=== PATIENT | female | born 1985 | race Caucasian/White ===

== ENCOUNTER 2017-04-05 09:32 | Inpatient (IN) | payer BC ==
[2017-04-05] MEDS ORDERED: ceFAZolin 2 GM in Premix Bag 1 BAG IV ONE (11:01)
[2017-04-05] MEDS ORDERED: Nalbuphine 20 MG/1 ML Amp IVPUSH PRN (11:01)
[2017-04-05] MEDS ORDERED: Sodium Chloride 0.9% 10 ML Syringe FLUSH PRN (11:01)
--- NOTE | 2017-04-05 11:04 | PCM.LDHP ---
L&D History of Present Illness - General Date of Service: 04/05/17 Admit Problem/Dx: Patient Status Order with Admit Dx/Problem 04/05/17 11:02 Patient Status [ADT] Routine Admission Diagnosis/Problem Admission Diagnosis/Problem Normal Source of Information: Patient History Limitations: Reports: No Limitations - History of Present Illness Introduction:: Patient is a 31 y/o at 37 6/7 wks who presents today from clinic for further monitoring. In clinic today and noted a headache which started yesterday and in general feeling unwell. Her blood pressure which is at the upper limit of normal. Otherwise denied vision changes or right upper quadrant pain. Because of these concerns she is asked to present for serial blood pressures and labs. 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 : 3 Para: 1 LMP (Approximate): Oncologic (Cancer) History: Reports: Thyroid Other Oncologic History: had partial thyroidectomy for papillary carcinoma - Past Surgical History Female Surgical History: Reports: Cystectomy Endocrine Surgical History: Reports: Thyroidectomy Oncologic Surgical History: Reports: Other (See Below) Social & Family History - Family History Family Medical History: Noncontributory - Tobacco Use Smoking Status *Q: Never Smoker Second Hand Smoke Exposure: No - Alcohol Use Alcohol Use History: No Days Per Week of Alcohol Use: 0 - Recreational Drug Use Recreational Drug Use: No H&P Review of Systems - Review of Systems: Review Of Systems: See Below General: Reports: Malaise HEENT: Reports: Headaches Pulmonary: Reports: No Symptoms Cardiovascular: Reports: No Symptoms Gastrointestinal: Reports: No Symptoms Genitourinary: Reports: No Symptoms Musculoskeletal: Reports: No Symptoms Psychiatric: Reports: No Symptoms Neurological: Reports: Headache L&D Exam - Exam Exam: See Below - Vital Signs Vital Signs: Last Vital Signs Temp 37.0 C 04/05/17 10:03 Pulse 79 04/05/17 10:03 Resp 18 04/05/17 10:03 BP 138/94 H 04/05/17 10:03 Pulse Ox Weight: 109.769 kg - OB Specific Contraction Intensity: Irritability Movement: Active Heart Tones: Present Heart Tones per Min: 125 Heart Rate (FHR) Variability: Moderate (6-25 bmp) Presentation: Vertex - Murguia Score Murguia Score Cervix Position: Midposition Murguia Score Consistency: Soft Murguia Score Effacement: 31-50% Murguia Score Dilation: 3-4 cm Murguia Score 's Station: -2 Murguia Score Total: 7 - Exam General: Alert, Oriented, Cooperative Lungs: Clear to Auscultation, Normal Respiratory Effort Cardiovascular: Regular Rate, Regular Rhythm GI/Abdominal Exam: Soft, Non-Tender Genitourinary: Normal external exam Extremities: Normal Inspection Skin: Warm, Dry, Intact DTR: 2+: Patella (R), 3+: Patella (L) - Patient Data Lab Results Last 24 hrs: Laboratory Results - last 24 hr 04/05/17 Range/Units 10:35 WBC 11.20 H (3.98-10.04) K/mm3 RBC 4.34 (3.98-5.22) M/mm3 Hgb 11.6 (11.2-15.7) gm/L Hct 36.4 (34.1-44.9) % MCV 83.9 (79.4-94.8) fl MCH 26.7 (25.6-32.2) pg MCHC 31.9 L (32.2-35.5) g/dl RDW Std Deviation 46.3 (36.4-46.3) fL Plt Count 135 L (182-369) K/mm3 MPV 13.5 H (9.4-12.3) fl Result Diagrams: 04/05/17 10:35 04/05/17 10:34 - Problem List (1) 37 weeks gestation of SNOMED Code(s): 39342938 ICD Code: Z3A.37 - 37 WEEKS GESTATION OF Status: Acute Current Visit: Yes (2) Preeclampsia SNOMED Code(s): 527923605 ICD Code: O14.90 - UNSPECIFIED PRE-ECLAMPSIA, UNSPECIFIED TRIMESTER Status : Acute Current Visit: Yes Qualifiers: Trimester: third trimester Qualified Code(s): O14.93 - Unspecified pre- eclampsia, third trimester Problem List Initiated/Reviewed/Updated: Yes Orders Last 24hrs: Active Orders 24 hr Category Date Time Status Patient Status [ADT] Routine ADT 04/05/17 11:02 Ordered Activity as Tolerated [RC] PFP Care 04/05/17 11:01 Ordered Communication Order [RC] ASDIRECTED Care 04/05/17 11:01 Ordered Communication Order [RC] ASDIRECTED Care 04/05/17 11:01 Ordered Heart Tones [RC] ASDIRECTED Care 04/05/17 11:01 Ordered Non Stress Test [RC] PER UNIT ROUTINE Care 04/05/17 10:07 Active Notify Provider [RC] ASDIRECTED Care 04/05/17 11:01 Ordered Notify Provider [RC] PFP Care 04/05/17 11:01 Ordered Notify Provider [RC] PRN Care 04/05/17 11:01 Ordered Peripheral IV Care [RC] . DIRECTED Care 04/05/17 11:03 Ordered Vital Signs [RC] PER UNIT ROUTINE Care 04/05/17 10:07 Active Vital Signs [RC] PER UNIT ROUTINE Care 04/05/17 11:01 Ordered Regular Diet [DIET] Diet 04/05/17 Breakfast Active ALANINE AMINOTRANSFERASE,ALT [CHEM] Routine Lab 04/05/17 10:06 Ordered ASPARTATE AMNIOTRANSFERASE,AST [CHEM] Routine Lab 04/05/17 10:06 Ordered CREATININE W/GFR [CHEM] Routine Lab 04/05/17 10:06 Ordered Lactated Ringers [Ringers, Lactated] 1,000 ml Med 04/05/17 11:15 Ordered IV ASDIRECTED Nalbuphine [Nubain] Med 04/05/17 11:01 Ordered 10 mg IVPUSH Q2H PRN Ondansetron [Zofran] Med 04/05/17 11:01 Ordered 4 mg IVPUSH Q4H PRN Oxytocin/Lactated Ringers [Pitocin in LR 10 Units/1,000 Med 04/05/17 11:15 Ordered ML] 10 unit in 1,000 ml IV .CONTINUOUS Oxytocin/Lactated Ringers [Pitocin in LR 10 Units/1,000 Med 04/05/17 11:15 Ordered ML] 10 unit in 1,000 ml IV TITRATE Sodium Chloride 0.9% [Saline Flush] Med 04/05/17 11:01 Ordered 10 ml FLUSH ASDIRECTED PRN ceFAZolin [Ancef] 1 gm Med 04/05/17 14:00 Ordered Premix Bag 1 bag IV Q8HR ceFAZolin [Ancef] 2 gm Med 04/05/17 11:01 Ordered Premix Bag 1 bag IV ONETIME Electronic Heart Tones Ext w TOCO [WOMSER] Oth 04/05/17 11:01 Ordered Routine Electronic Heart Tones Internal [WOMSER] Per Unit Ot 04/05/17 11:01 Ordered Routine Peripheral IV Insertion Adult [OM.PC] Routine Oth 04/05/17 11:01 Ordered Resuscitation Status Routine Resus Stat 04/05/17 10:06 Ordered Assessment/Plan Comment:: 31 y/o at 37 6/7 wks gestation * Labs done and within normal limits. Blood pressures done serially and most are in the mild range. We'll plan for keeping in for induction of labor. * Patient is GBS positive, will start Ancef for prophylaxis * Pitocin to be started for induction and then AROM when able * Pain management per patient preference * Anticipate
[2017-04-05] MEDS ORDERED: Oxytocin/Lactated Ringers 10 UNIT/1,000 ML BAG IV SCH ×2 (11:15)
[2017-04-05] MEDS ORDERED: Lactated Ringers 1,000 ML IV SCH (11:15)
[2017-04-05] MEDS: Ondansetron 4 MG/2 ML SDV IVPUSH PRN ×2 (14:06→20:05)
--- NOTE | 2017-04-05 14:52 | PCM.PREANE ---
Preanesthetic Assessment - Procedure Proposed Procedure: GENA - Anesthesia/Transfusion/Family Hx Anesthesia History: Prior Anesthesia Reaction Type of Anesthesia Reaction: Excessive Nausea/Vomiting Family History of Anesthesia Reaction: No Transfusion History: No Prior Transfusion(s) Intubation History: Unknown - Review of Systems General: No Symptoms Pulmonary: No Symptoms Cardiovascular: No Symptoms Gastrointestinal: Other (GERD) Neurological: No Symptoms Other: Reports: Thyroid Problems (hx thyroid ca, right thyroid lobectomy, hypothyroidism) - Physical Assessment NPO Status Date: 04/05/17 NPO Status Time: 14:00 Respiratory Rate: 18 Vital Signs: Last Vital Signs Temp 37.0 C 04/05/17 10:03 Pulse 79 04/05/17 10:03 Resp 18 04/05/17 10:03 BP 138/94 H 04/05/17 10:03 Pulse Ox Height: 1.73 m Weight: 109.769 kg ASA Class: 2 Mental Status: Alert & Oriented x3 Airway Class: Mallampati = 2 Dentition: Reports: Normal Dentition Thyro-Mental Finger Breadths: 3 Mouth Opening Finger Breadths: 3 ROM/Head Extension: Full Lungs: Clear to Auscultation, Normal Respiratory Effort Cardiovascular: Regular Rate, Regular Rhythm - Lab Values: Laboratory Last Values WBC 11.20 K/mm3 (3.98-10.04) H 04/05/17 10:35 RBC 4.34 M/mm3 (3.98-5.22) 04/05/17 10:35 Hgb 11.6 gm/L (11.2-15.7) 04/05/17 10:35 Hct 36.4 % (34.1-44.9) 04/05/17 10:35 MCV 83.9 fl (79.4-94.8) 04/05/17 10:35 MCH 26.7 pg (25.6-32.2) 04/05/17 10:35 MCHC 31.9 g/dl (32.2-35.5) L 04/05/17 10:35 RDW Std Deviation 46.3 fL (36.4-46.3) 04/05/17 10:35 Plt Count 135 K/mm3 (182-369) L 04/05/17 10:35 MPV 13.5 fl (9.4-12.3) H 04/05/17 10:35 Creatinine 0.7 mg/dL (0.55-1.02) 04/05/17 10:34 Est Cr Clr Drug Dosing 118.54 mL/min 04/05/17 10:34 Estimated GFR (MDRD) > 60 mL/min (>60) 04/05/17 10:34 AST 16 U/L (15-37) 04/05/17 10:34 ALT 18 U/L (14-59) 04/05/17 10:34 - Allergies Allergies/Adverse Reactions: Allergies Allergy/AdvReac Type Severity Reaction Status Date / Time erythrosine sodium Allergy Rash Verified 10/05/15 17:42 Penicillins Allergy Rash Verified 10/05/15 17:42 - Blood Blood Available: No Product(s) Available: None - Anesthesia Plan Pre-Op Medication Ordered: None - Acknowledgements Anesthesia Type Planned: Epidural Pt an Appropriate Candidate for the Planned Anesthesia: Yes Alternatives and Risks of Anesthesia Discussed w Pt/Guardian: Yes Pt/Guardian Understands and Agrees with Anesthesia Plan: Yes PreAnesthesia Questionnaire - Past Health History Medical/Surgical History: Denies Medical/Surgical History [employer]IDE [employer] History: Reports: , Spontaneous Other OB/BYN History: ovairan cyst removal Endocrine/Metabolic History: Reports: Other (See Below) Oncologic (Cancer) History: Reports: Thyroid Other Oncologic History: had partial thyroidectomy for papillary carcinoma - Past Surgical History Female Surgical History: Reports: Cystectomy Endocrine Surgical History: Reports: Thyroidectomy Oncologic Surgical History: Reports: Other (See Below) - SUBSTANCE USE Smoking Status *Q: Never Smoker Second Hand Smoke Exposure: No Days Per Week of Alcohol Use: 0 Recreational Drug Use History: No - HOME MEDS Home Medications: Home Meds Levothyroxine Sodium [Synthroid] 125 mcg PO DAILY 10/05/15 [History] PNV #116/Iron Fumarate/FA/DHA [Expecta Combo Pack] 1 each PO DAILY 03/11 [History] - CURRENT (IN HOUSE) MEDS Current Meds: Current Medications Cefazolin Sodium/Dextrose 1 gm (/ Premix) 50 mls @ 100 mls/hr IV Q8H JOE Lactated Ringer's (Ringers, Lactated) 1,000 mls @ 40 mls/hr IV ASDIRECTED JOE Last Admin: 04/05/17 13:40 Dose: 40 mls/hr Oxytocin/Lactated Ringer's (Pitocin In Lr 10 Units/1,000 Ml) 10 unit in 1,000 mls @ 500 mls/hr IV .CONTINUOUS JOE Oxytocin/Lactated Ringer's (Pitocin In Lr 10 Units/1,000 Ml) 10 unit in 1,000 mls @ 12 mls/hr IV TITRATE JOE; 2 MUNITS/MIN PRN Reason: Protocol Last Titration: 04/05/17 14:12 Dose: 4 munits/min, 24 mls/hr Nalbuphine HCl (Nubain) 10 mg IVPUSH Q2H PRN PRN Reason: Pain (moderate 4-6) Ondansetron HCl (Zofran) 4 mg IVPUSH Q4H PRN PRN Reason: Nausea/Vomiting Last Admin: 04/05/17 14:06 Dose: 4 mg Sodium Chloride (Saline Flush) 10 ml FLUSH ASDIRECTED PRN PRN Reason: Keep Vein Open Last Admin: 04/05/17 13:48 Dose: 10 ml Discontinued Medications Cefazolin Sodium/Dextrose 2 gm (/ Premix) 50 mls @ 100 mls/hr IV ONETIME ONE Stop: 04/05/17 11:30 Last Admin: 04/05/17 13:45 Dose: 100 mls/hr
--- NOTE | 2017-04-05 16:39 | PCM.PNLD ---
Labor Progress Note - VS & Meds Vital Signs: Last Vital Signs Temp 37.0 C 04/05/17 10:03 Pulse 79 04/05/17 10:03 Resp 18 04/05/17 14:52 BP 138/94 H 04/05/17 10:03 Pulse Ox Active Medications: Current Medications Cefazolin Sodium/Dextrose 1 gm (/ Premix) 50 mls @ 100 mls/hr IV Q8H JOE Lactated Ringer's (Ringers, Lactated) 1,000 mls @ 40 mls/hr IV ASDIRECTED JOE Last Admin: 04/05/17 13:40 Dose: 40 mls/hr Oxytocin/Lactated Ringer's (Pitocin In Lr 10 Units/1,000 Ml) 10 unit in 1,000 mls @ 500 mls/hr IV .CONTINUOUS JOE Oxytocin/Lactated Ringer's (Pitocin In Lr 10 Units/1,000 Ml) 10 unit in 1,000 mls @ 12 mls/hr IV TITRATE JOE; 2 MUNITS/MIN PRN Reason: Protocol Last Titration: 04/05/17 16:28 Dose: 10 munits/min, 60 mls/hr Nalbuphine HCl (Nubain) 10 mg IVPUSH Q2H PRN PRN Reason: Pain (moderate 4-6) Ondansetron HCl (Zofran) 4 mg IVPUSH Q4H PRN PRN Reason: Nausea/Vomiting Last Admin: 04/05/17 14:06 Dose: 4 mg Sodium Chloride (Saline Flush) 10 ml FLUSH ASDIRECTED PRN PRN Reason: Keep Vein Open Last Admin: 04/05/17 13:48 Dose: 10 ml Discontinued Medications Cefazolin Sodium/Dextrose 2 gm (/ Premix) 50 mls @ 100 mls/hr IV ONETIME ONE Stop: 04/05/17 11:30 Last Admin: 04/05/17 13:45 Dose: 100 mls/hr - Uterine Contractions Uterine Monitoring Mode: External [place] Contraction Intensity: Mild to Moderate - Monitoring Monitor Mode: External Ultrasound Heart Rate (FHR) Baseline: 135 Heart Rate (FHR) Variability: Moderate (6-25 bmp) Accelerations: Present, 15x15 Decelerations: None Strip Review: Category I - Vaginal Exam Dilation (cm): 3-4 Effacement (Percent): 50 Station: -2 Cervical Position: Midposition - Labor Progress (Free Text) Labor Progress: Patient doing well on pitocin, currently at 10. Feeling some cramping/pain. AROM performed with release of clear fluid. BP's normal to mild range. Patient feeling well currently. Continue present management
[2017-04-05] MEDS ORDERED: ePHEDrine 50 MG/ML SDV IVPUSH PRN (18:39)
[2017-04-05] MEDS ORDERED: fentaNYL 100 MCG/2 ML SDV EPIDUR PRN (18:39)
[2017-04-05] MEDS ORDERED: Ondansetron 4 MG/2 ML SDV IVPUSH PRN (18:39)
[2017-04-05] MEDS ORDERED: diphenhydrAMINE 50 MG/ML SDV IVPUSH PRN (18:39)
[2017-04-05] MEDS ORDERED: Bupivacaine/fentaNYL/NS 100 ML Bag EPIDUR SCH (18:45)
--- NOTE | 2017-04-05 19:59 | PCM.PNLD ---
Labor Progress Note - VS & Meds Vital Signs: Last Vital Signs Temp 37.0 C 04/05/17 10:03 Pulse 79 04/05/17 10:03 Resp 18 04/05/17 14:52 BP 138/94 H 04/05/17 10:03 Pulse Ox Active Medications: Current Medications Diphenhydramine HCl (Benadryl) 25 mg IVPUSH Q6H PRN PRN Reason: Pruritis Ephedrine Sulfate (Ephedrine Sulfate) 5 mg IVPUSH ASDIRECTED PRN PRN Reason: Hypotension Fentanyl (Sublimaze) 100 mcg EPIDUR Q3H PRN PRN Reason: Pain Last Admin: 04/05/17 19:02 Dose: 100 mcg Fentanyl/Bupivacaine HCl (Fentanyl/Bupivacaine/Ns 2 Mcg-0.125% 100 Ml) 100 ml EPIDUR ASDIRECTED JOE Last Admin: 04/05/17 19:02 Dose: 100 ml Cefazolin Sodium/Dextrose 1 gm (/ Premix) 50 mls @ 100 mls/hr IV Q8H JOE Lactated Ringer's (Ringers, Lactated) 1,000 mls @ 40 mls/hr IV ASDIRECTED JOE Last Admin: 04/05/17 13:40 Dose: 40 mls/hr Oxytocin/Lactated Ringer's (Pitocin In Lr 10 Units/1,000 Ml) 10 unit in 1,000 mls @ 500 mls/hr IV .CONTINUOUS JOE Oxytocin/Lactated Ringer's (Pitocin In Lr 10 Units/1,000 Ml) 10 unit in 1,000 mls @ 12 mls/hr IV TITRATE JOE; 2 MUNITS/MIN PRN Reason: Protocol Last Titration: 04/05/17 16:28 Dose: 10 munits/min, 60 mls/hr Nalbuphine HCl (Nubain) 10 mg IVPUSH Q2H PRN PRN Reason: Pain (moderate 4-6) Ondansetron HCl (Zofran) 4 mg IVPUSH Q4H PRN PRN Reason: Nausea/Vomiting Last Admin: 04/05/17 14:06 Dose: 4 mg Ondansetron HCl (Zofran) 4 mg IVPUSH ONETIME PRN PRN Reason: Nausea/Vomiting Sodium Chloride (Saline Flush) 10 ml FLUSH ASDIRECTED PRN PRN Reason: Keep Vein Open Last Admin: 04/05/17 13:48 Dose: 10 ml Discontinued Medications Cefazolin Sodium/Dextrose 2 gm (/ Premix) 50 mls @ 100 mls/hr IV ONETIME ONE Stop: 04/05/17 11:30 Last Admin: 04/05/17 13:45 Dose: 100 mls/hr - Uterine Contractions Uterine Monitoring Mode: External [place] Contraction Intensity: Moderate - Monitoring Monitor Mode: External Ultrasound Heart Rate (FHR) Baseline: 135 Heart Rate (FHR) Variability: Moderate (6-25 bmp) Accelerations: Present, 15x15 Decelerations: Variable Strip Review: Category II - Vaginal Exam Dilation (cm): 5 Effacement (Percent): 75 Station: -2 Cervical Position: Midposition - Labor Progress (Free Text) Labor Progress: Patient doing well. Comfortable with epidural. Continue present management.
[2017-04-05] MEDS ORDERED: ceFAZolin 1 GM in Premix Bag 1 BAG IV SCH (20:00)
--- NOTE | 2017-04-05 21:30 | PCM.DEL ---
L & D Note - General Info Date of Service: 04/05/17 - Delivery Note Labor: Induced by ARM, Induced by Oxytocin Delivery Outcome: Livebirth Infant Delivery Method: Spontaneous Vaginal Delivery-Single Infant Delivery Mode: Spontaneous Presentation: Left Occiput Anterior (CRISTIN) Nuchal Cord: None Anesthesia Type: Epidural Amniotic Fluid Description: Clear Episiotomy Type: None Laceration: None Placenta: Intact, Spontaneous Cord: 3 Vessels Estimated Blood Loss: 250 Resuscitation Needed: Yes [place]: Bulb Syringe, Stimulated, Warmed, [place] Used Delivery Comments (Free Text/Narrative):: While sitting on L&D approached by nursing due to difficulty assessing FHR. Presented to room and prepared for FSE placement, however, exam showed scalp already at introirtus/. head spontaneously delivered from an CRISTIN presentation. No nuchal cord present. With gentle downward traction the shoulders and body delivered. placed on maternal abdomen. Cord clamped and cut. Cord blood obtained. Placenta allowed time to separate and expelled. Inspection of the perineum showed no lacerations - Patient Data Vitals - Most Recent: Last Vital Signs Temp 37.0 C 04/05/17 10:03 Pulse 79 04/05/17 10:03 Resp 18 04/05/17 14:52 BP 138/94 H 04/05/17 10:03 Pulse Ox Weight - Most Recent: 109.769 kg I&O - Last 24 Hours: Intake & Output 04/05/17 04/05/17 04/05/17 06:59 14:59 22:59 Intake Total 360 Balance 360 Lab Results Last 24 Hours: Laboratory Results - last 24 hr 04/05/17 04/05/17 Range/Units 10:34 10:35 WBC 11.20 H (3.98-10.04) K/mm3 RBC 4.34 (3.98-5.22) M/mm3 Hgb 11.6 (11.2-15.7) gm/L Hct 36.4 (34.1-44.9) % MCV 83.9 (79.4-94.8) fl MCH 26.7 (25.6-32.2) pg MCHC 31.9 L (32.2-35.5) g/dl RDW Std Deviation 46.3 (36.4-46.3) fL Plt Count 135 L (182-369) K/mm3 MPV 13.5 H (9.4-12.3) fl Creatinine 0.7 (0.55-1.02) mg/dL Est Cr Clr Drug Dosing 118.54 mL/min Estimated GFR (MDRD) > 60 (>60) mL/min AST 16 (15-37) U/L ALT 18 (14-59) U/L Med Orders - Current: Current Medications Diphenhydramine HCl (Benadryl) 25 mg IVPUSH Q6H PRN PRN Reason: Pruritis Ephedrine Sulfate (Ephedrine Sulfate) 5 mg IVPUSH ASDIRECTED PRN PRN Reason: Hypotension Fentanyl (Sublimaze) 100 mcg EPIDUR Q3H PRN PRN Reason: Pain Last Admin: 04/05/17 19:02 Dose: 100 mcg Fentanyl/Bupivacaine HCl (Fentanyl/Bupivacaine/Ns 2 Mcg-0.125% 100 Ml) 100 ml EPIDUR ASDIRECTED JOE Last Admin: 04/05/17 19:02 Dose: 100 ml Cefazolin Sodium/Dextrose 1 gm (/ Premix) 50 mls @ 100 mls/hr IV Q8H JOE Last Admin: 04/05/17 20:05 Dose: 100 mls/hr Lactated Ringer's (Ringers, Lactated) 1,000 mls @ 40 mls/hr IV ASDIRECTED JOE Last Admin: 04/05/17 13:40 Dose: 40 mls/hr Oxytocin/Lactated Ringer's (Pitocin In Lr 10 Units/1,000 Ml) 10 unit in 1,000 mls @ 500 mls/hr IV .CONTINUOUS JOE Oxytocin/Lactated Ringer's (Pitocin In Lr 10 Units/1,000 Ml) 10 unit in 1,000 mls @ 12 mls/hr IV TITRATE JOE; 2 MUNITS/MIN PRN Reason: Protocol Last Titration: 04/05/17 20:06 Dose: 12 munits/min, 72 mls/hr Nalbuphine HCl (Nubain) 10 mg IVPUSH Q2H PRN PRN Reason: Pain (moderate 4-6) Ondansetron HCl (Zofran) 4 mg IVPUSH Q4H PRN PRN Reason: Nausea/Vomiting Last Admin: 04/05/17 20:05 Dose: 4 mg Ondansetron HCl (Zofran) 4 mg IVPUSH ONETIME PRN PRN Reason: Nausea/Vomiting Sodium Chloride (Saline Flush) 10 ml FLUSH ASDIRECTED PRN PRN Reason: Keep Vein Open Last Admin: 04/05/17 13:48 Dose: 10 ml Discontinued Medications Cefazolin Sodium/Dextrose 2 gm (/ Premix) 50 mls @ 100 mls/hr IV ONETIME ONE Stop: 04/05/17 11:30 Last Admin: 04/05/17 13:45 Dose: 100 mls/hr - Problem List & Annotations (1) 37 weeks gestation of SNOMED Code(s): 98484050 Code(s): Z3A.37 - 37 WEEKS GESTATION OF Status: Acute Current Visit: Yes (2) Preeclampsia SNOMED Code(s): 313547693 Code(s): O14.90 - UNSPECIFIED PRE-ECLAMPSIA, UNSPECIFIED TRIMESTER Status: Acute Current Visit: Yes Qualifiers: Trimester: third trimester Qualified Code(s): O14.93 - Unspecified pre- eclampsia, third trimester (3) Vaginal delivery SNOMED Code(s): 136845839 Code(s): O80 - ENCOUNTER FOR FULL-TERM UNCOMPLICATED DELIVERY Status: Acute Current Visit: Yes - Problem List Review Problem List Initiated/Reviewed/Updated: Yes - My Orders Last 24 Hours: My Active Orders 04/05/17 10:06 Resuscitation Status Routine 04/05/17 10:07 Non Stress Test [RC] PER UNIT ROUTINE Vital Signs [RC] PER UNIT ROUTINE 04/05/17 11:01 Activity as Tolerated [RC] PFP Communication Order [RC] ASDIRECTED Communication Order [RC] ASDIRECTED Heart Tones [RC] ASDIRECTED Notify Provider [RC] ASDIRECTED Notify Provider [RC] PFP Notify Provider [RC] PRN Vital Signs [RC] PER UNIT ROUTINE Nalbuphine [Nubain] 10 mg IVPUSH Q2H PRN Ondansetron [Zofran] 4 mg IVPUSH Q4H PRN Sodium Chloride 0.9% [Saline Flush] 10 ml FLUSH ASDIRECTED PRN Electronic Heart Tones Ext w TOCO [WOMSER] Routine Electronic Heart Tones Internal [WOMSER] Per Unit Routine Peripheral IV Insertion Adult [OM.PC] Routine 04/05/17 11:02 Patient Status [ADT] Routine 04/05/17 11:03 Peripheral IV Care [RC] . DIRECTED 04/05/17 11:15 Lactated Ringers [Ringers, Lactated] 1,000 ml IV ASDIRECTED Oxytocin/Lactated Ringers [Pitocin in LR 10 Units/1,000 ML] 10 unit in 1,000 ml IV .CONTINUOUS Oxytocin/Lactated Ringers [Pitocin in LR 10 Units/1,000 ML] 10 unit in 1,000 ml IV TITRATE 04/05/17 20:00 ceFAZolin [Ancef] 1 gm Premix Bag 1 bag IV Q8H 04/05/17 Breakfast Regular Diet [DIET] - Assessment Assessment:: 31 y/o G3 now P2012 PPD#0 from after IOL at 37 6/7 wks for preeclampsia - Plan Plan:: * Routine cares * Encourage breast feeding * Continue to monitor BP's closely * Discharge home in 1-2 days
[2017-04-05] MEDS ORDERED: Witch Hazel Medicated Pads 100/Jar TOP PRN (21:53)
[2017-04-05] MEDS ORDERED: Benzocaine/Menthol 20%-0.5% Spray 56 GM Canister TOP PRN (21:53)
[2017-04-05] MEDS ORDERED: Lanolin 100% Cream 7 GM Tube TOP PRN (21:53)
[2017-04-05] MEDS ORDERED: Acetaminophen 325 MG Tab PO PRN (21:53)
[2017-04-05] MEDS ORDERED: Docusate Sodium 100 MG Cap PO PRN (21:53)
[2017-04-05] MEDS ORDERED: Bupivacaine 0.25% 10 ML SDV ONE (22:22)
[2017-04-06] MEDS ORDERED: Levothyroxine 125 MCG Tab PO SCH (06:00)
[2017-04-06] MEDS: Ibuprofen 600 MG Tab PO PRN ×2 (06:19→17:54)
--- NOTE | 2017-04-06 07:03 | PCM.PNPP ---
- General Info Date of Service: 04/06/17 Functional Status: Reports: Pain Controlled, Tolerating Diet, Ambulating, Urinating - Review of Systems General: Reports: No Symptoms Pulmonary: Reports: No Symptoms Cardiovascular: Reports: No Symptoms Gastrointestinal: Reports: No Symptoms Genitourinary: Reports: No Symptoms Musculoskeletal: Reports: No Symptoms - Patient Data Vital Signs - Most Recent: Last Vital Signs Temp 37.0 C 04/05/17 10:03 Pulse 69 04/06/17 03:47 Resp 16 04/06/17 03:47 BP 127/98 H 04/06/17 03:47 Pulse Ox 98 04/06/17 03:47 Weight - Most Recent: 109.769 kg I&O - Last 24 Hours: Intake & Output 04/05/17 04/06/17 04/06/17 22:59 06:59 14:59 Intake Total 360 Balance 360 Lab Results - Last 24 Hours: Laboratory Results - last 24 hr 04/05/17 04/05/17 Range/Units 10:34 10:35 WBC 11.20 H (3.98-10.04) K/mm3 RBC 4.34 (3.98-5.22) M/mm3 Hgb 11.6 (11.2-15.7) gm/L Hct 36.4 (34.1-44.9) % MCV 83.9 (79.4-94.8) fl MCH 26.7 (25.6-32.2) pg MCHC 31.9 L (32.2-35.5) g/dl RDW Std Deviation 46.3 (36.4-46.3) fL Plt Count 135 L (182-369) K/mm3 MPV 13.5 H (9.4-12.3) fl Creatinine 0.7 (0.55-1.02) mg/dL Est Cr Clr Drug Dosing 118.54 mL/min Estimated GFR (MDRD) > 60 (>60) mL/min AST 16 (15-37) U/L ALT 18 (14-59) U/L Med Orders - Current: Current Medications Acetaminophen (Tylenol) 650 mg PO Q4H PRN PRN Reason: mild pain or fever Benzocaine/Menthol (Dermoplast Pain Relief [place]) 0 gm TOP ASDIRECTED PRN PRN Reason: Perineal Comfort Measure Docusate Sodium (Colace) 100 mg PO BID PRN PRN Reason: Constipation Emollient Ointment (Lansinoh Hpa) 0 gm TOP ASDIRECTED PRN PRN Reason: Sore Nipples Ibuprofen (Motrin) 600 mg PO Q6H PRN PRN Reason: Mild pain or fever Last Admin: 04/06/17 06:19 Dose: 600 mg Levothyroxine Sodium (Levothyroxine) 125 mcg PO ACBREAKFAST JOE Mikal Salmeron (Tucks) 1 pad TOP ASDIRECTED PRN PRN Reason: Hemorrhoid pain Discontinued Medications Diphenhydramine HCl (Benadryl) 25 mg IVPUSH Q6H PRN PRN Reason: Pruritis Ephedrine Sulfate (Ephedrine Sulfate) 5 mg IVPUSH ASDIRECTED PRN PRN Reason: Hypotension Fentanyl (Sublimaze) 100 mcg EPIDUR Q3H PRN PRN Reason: Pain Last Admin: 04/05/17 19:02 Dose: 100 mcg Fentanyl/Bupivacaine HCl (Fentanyl/Bupivacaine/Ns 2 Mcg-0.125% 100 Ml) 100 ml EPIDUR ASDIRECTED JOE Last Admin: 04/05/17 19:02 Dose: 100 ml Cefazolin Sodium/Dextrose 2 gm (/ Premix) 50 mls @ 100 mls/hr IV ONETIME ONE Stop: 04/05/17 11:30 Last Admin: 04/05/17 13:45 Dose: 100 mls/hr Cefazolin Sodium/Dextrose 1 gm (/ Premix) 50 mls @ 100 mls/hr IV Q8H JOE Last Admin: 04/05/17 20:05 Dose: 100 mls/hr Lactated Ringer's (Ringers, Lactated) 1,000 mls @ 40 mls/hr IV ASDIRECTED JOE Last Admin: 04/05/17 13:40 Dose: 40 mls/hr Oxytocin/Lactated Ringer's (Pitocin In Lr 10 Units/1,000 Ml) 10 unit in 1,000 mls @ 500 mls/hr IV .CONTINUOUS JOE Last Admin: 04/05/17 21:16 Dose: 500 mls/hr Oxytocin/Lactated Ringer's (Pitocin In Lr 10 Units/1,000 Ml) 10 unit in 1,000 mls @ 12 mls/hr IV TITRATE JOE; 2 MUNITS/MIN PRN Reason: Protocol Last Titration: 04/05/17 20:06 Dose: 12 munits/min, 72 mls/hr Levothyroxine Sodium (Levothyroxine) 125 mcg PO ACBREAKFAST JOE Nalbuphine HCl (Nubain) 10 mg IVPUSH Q2H PRN PRN Reason: Pain (moderate 4-6) Ondansetron HCl (Zofran) 4 mg IVPUSH Q4H PRN PRN Reason: Nausea/Vomiting Last Admin: 04/05/17 20:05 Dose: 4 mg Ondansetron HCl (Zofran) 4 mg IVPUSH ONETIME PRN PRN Reason: Nausea/Vomiting Sodium Chloride (Saline Flush) 10 ml FLUSH ASDIRECTED PRN PRN Reason: Keep Vein Open Last Admin: 04/05/17 13:48 Dose: 10 ml - Interaction Infant Disposition, : in Room with Family Infant Interaction: Holding Infant Feeding: Breastfed Infant; Nursed Well Support Person: - Recovery Exam Fundal Tone: Firm Fundal Level: At Umbilicus Fundal Placement: Midline Lochia Amount: Small, Moderate Lochia Color: Rubra/Red Perineum Description: Intact, Minimal Bruising/Swelling Episiotomy/Laceration: None Bladder Status: Voiding - Exam General: Alert, Oriented, Cooperative GI/Abdominal Exam: Soft, Non-Tender Extremities: Normal Inspection Skin: Warm, Dry, Intact - Problem List & Annotations (1) 37 weeks gestation of SNOMED Code(s): 37570387 Code(s): Z3A.37 - 37 WEEKS GESTATION OF Status: Acute Current Visit: Yes (2) Preeclampsia SNOMED Code(s): 433582353 Code(s): O14.90 - UNSPECIFIED PRE-ECLAMPSIA, UNSPECIFIED TRIMESTER Status: Acute Current Visit: Yes Qualifiers: Trimester: third trimester Qualified Code(s): O14.93 - Unspecified pre- eclampsia, third trimester (3) Vaginal delivery SNOMED Code(s): 053603351 Code(s): O80 - ENCOUNTER FOR FULL-TERM UNCOMPLICATED DELIVERY Status: Acute Current Visit: Yes - Problem List Review Problem List Initiated/Reviewed/Updated: Yes - My Orders Last 24 Hours: My Active Orders 04/05/17 10:06 Resuscitation Status Routine 04/05/17 10:07 Non Stress Test [RC] PER UNIT ROUTINE Vital Signs [RC] PER UNIT ROUTINE 04/05/17 11:01 Activity as Tolerated [RC] PFP Communication Order [RC] ASDIRECTED Communication Order [RC] ASDIRECTED Heart Tones [RC] ASDIRECTED Notify Provider [RC] ASDIRECTED Notify Provider [RC] PFP Notify Provider [RC] PRN Vital Signs [RC] PER UNIT ROUTINE 04/05/17 21:53 Activity as Tolerated [RC] .PRN Acetaminophen [Tylenol] 650 mg PO Q4H PRN Benzocaine/Menthol [Dermoplast Pain Relief [place]] See Dose Instructions TOP ASDIRECTED PRN Docusate Sodium [Colace] 100 mg PO BID PRN Ibuprofen [Motrin] 600 mg PO Q6H PRN Lanolin [Lansinoh HPA] See Dose Instructions TOP ASDIRECTED PRN Witch Faviola [Tucks] 1 pad TOP ASDIRECTED PRN Heat Therapy [OM.PC] PRN Ice Therapy [OM.PC] Per Unit Routine Perineal Care [OM.PC] Per Unit Routine Peripheral IV Discontinue [OM.PC] Routine Sitz Bath [OM.PC] Per Unit Routine 04/05/17 22:13 Patient Status [ADT] Routine Vital Signs [RC] 04,12,20 Assess Lochia [WOMSER] Per Unit Routine Assess Uterine Involution [WOMSER] Per Unit Routine Breast Pump [WOMSER] Per Unit Routine Medication Administration Instruction [OM.PC] Routine Perineal Care [OM.PC] Per Unit Routine Sitz Bath [OM.PC] Per Unit Routine 04/05/17 22:15 Heat Therapy [OM.PC] PRN 04/05/17 Dinner Regular Diet [DIET] 04/06/17 21:53 Heat Therapy [OM.PC] PRN 04/06/17 22:15 Heat Therapy [OM.PC] PRN 04/07/17 06:00 Levothyroxine 125 mcg PO ACBREAKFAST - Assessment Assessment:: 31 y/o G3 now P2012 PPD#1 from after IOL at 37 6/7 wks for preeclampsia - Plan Plan:: * Routine cares * Encourage breast feeding * BP's continue to be normal to low mild range. Continue to monitor closely. BP check in office in 1-2 weeks after discharge. * Discharge home tomorrow
[2017-04-07] MEDS ORDERED: Levothyroxine 125 MCG Tab PO SCH (06:00)
--- NOTE | 2017-04-07 07:04 | PCM.PNPP ---
- General Info Date of Service: 04/07/17 Functional Status: Reports: Pain Controlled, Tolerating Diet, Ambulating, Urinating - Review of Systems General: Reports: No Symptoms Pulmonary: Reports: No Symptoms Cardiovascular: Reports: No Symptoms Gastrointestinal: Reports: No Symptoms Genitourinary: Reports: No Symptoms Musculoskeletal: Reports: No Symptoms Neurological: Reports: No Symptoms - Patient Data Vital Signs - Most Recent: Last Vital Signs Temp 36.9 C 04/07/17 03:13 Pulse 70 04/07/17 03:13 Resp 12 04/07/17 03:13 BP 128/77 04/07/17 03:13 Pulse Ox 99 04/07/17 03:13 Weight - Most Recent: 109.769 kg I&O - Last 24 Hours: Intake & Output 04/06/17 04/07/17 04/07/17 22:59 06:59 14:59 Intake Total 240 Balance 240 Med Orders - Current: Current Medications Acetaminophen (Tylenol) 650 mg PO Q4H PRN PRN Reason: mild pain or fever Benzocaine/Menthol (Dermoplast Pain Relief [place]) 0 gm TOP ASDIRECTED PRN PRN Reason: Perineal Comfort Measure Docusate Sodium (Colace) 100 mg PO BID PRN PRN Reason: Constipation Emollient Ointment (Lansinoh Hpa) 0 gm TOP ASDIRECTED PRN PRN Reason: Sore Nipples Ibuprofen (Motrin) 600 mg PO Q6H PRN PRN Reason: Mild pain or fever Last Admin: 04/06/17 17:54 Dose: 600 mg Levothyroxine Sodium (Levothyroxine) 125 mcg PO ACBREAKFAST JOE Last Admin: 04/07/17 06:18 Dose: 125 mcg Witch Faviola (Tucks) 1 pad TOP ASDIRECTED PRN PRN Reason: Hemorrhoid pain Discontinued Medications Bupivacaine HCl (Sensorcaine-Mpf 0.25%) 10 ml .ROUTE .STK-MED ONE Stop: 04/05/17 22:23 Diphenhydramine HCl (Benadryl) 25 mg IVPUSH Q6H PRN PRN Reason: Pruritis Ephedrine Sulfate (Ephedrine Sulfate) 5 mg IVPUSH ASDIRECTED PRN PRN Reason: Hypotension Fentanyl (Sublimaze) 100 mcg EPIDUR Q3H PRN PRN Reason: Pain Last Admin: 04/05/17 19:02 Dose: 100 mcg Fentanyl/Bupivacaine HCl (Fentanyl/Bupivacaine/Ns 2 Mcg-0.125% 100 Ml) 100 ml EPIDUR ASDIRECTED JOE Last Admin: 04/05/17 19:02 Dose: 100 ml Cefazolin Sodium/Dextrose 2 gm (/ Premix) 50 mls @ 100 mls/hr IV ONETIME ONE Stop: 04/05/17 11:30 Last Admin: 04/05/17 13:45 Dose: 100 mls/hr Cefazolin Sodium/Dextrose 1 gm (/ Premix) 50 mls @ 100 mls/hr IV Q8H JOE Last Admin: 04/05/17 20:05 Dose: 100 mls/hr Lactated Ringer's (Ringers, Lactated) 1,000 mls @ 40 mls/hr IV ASDIRECTED JOE Last Admin: 04/05/17 13:40 Dose: 40 mls/hr Oxytocin/Lactated Ringer's (Pitocin In Lr 10 Units/1,000 Ml) 10 unit in 1,000 mls @ 500 mls/hr IV .CONTINUOUS JOE Last Admin: 04/05/17 21:16 Dose: 500 mls/hr Oxytocin/Lactated Ringer's (Pitocin In Lr 10 Units/1,000 Ml) 10 unit in 1,000 mls @ 12 mls/hr IV TITRATE JOE; 2 MUNITS/MIN PRN Reason: Protocol Last Titration: 04/05/17 20:06 Dose: 12 munits/min, 72 mls/hr Levothyroxine Sodium (Levothyroxine) 125 mcg PO ACBREAKFAST JOE Nalbuphine HCl (Nubain) 10 mg IVPUSH Q2H PRN PRN Reason: Pain (moderate 4-6) Ondansetron HCl (Zofran) 4 mg IVPUSH Q4H PRN PRN Reason: Nausea/Vomiting Last Admin: 04/05/17 20:05 Dose: 4 mg Ondansetron HCl (Zofran) 4 mg IVPUSH ONETIME PRN PRN Reason: Nausea/Vomiting Sodium Chloride (Saline Flush) 10 ml FLUSH ASDIRECTED PRN PRN Reason: Keep Vein Open Last Admin: 04/05/17 13:48 Dose: 10 ml - Infant Interaction Infant Disposition, : [place] in Room with Family Interaction: Holding Infant Feeding: Breastfed ; Nursed Well Support Person: - Recovery Exam Fundal Tone: Firm Fundal Level: 1 Fingerbreadths Below Umbilicus Fundal Placement: Midline Lochia Amount: Small Lochia Color: Rubra/Red Perineum Description: Intact, Minimal Bruising/Swelling Episiotomy/Laceration: None Bladder Status: Voiding - Exam General: Alert, Oriented, Cooperative GI/Abdominal Exam: Soft, Non-Tender Extremities: Normal Inspection Skin: Warm, Dry, Intact - Problem List & Annotations (1) 37 weeks gestation of SNOMED Code(s): 88304826 Code(s): Z3A.37 - 37 WEEKS GESTATION OF Status: Acute Current Visit: Yes (2) Preeclampsia SNOMED Code(s): 878102234 Code(s): O14.90 - UNSPECIFIED PRE-ECLAMPSIA, UNSPECIFIED TRIMESTER Status: Acute Current Visit: Yes Qualifiers: Trimester: third trimester Qualified Code(s): O14.93 - Unspecified pre- eclampsia, third trimester (3) Vaginal delivery SNOMED Code(s): 096795887 Code(s): O80 - ENCOUNTER FOR FULL-TERM UNCOMPLICATED DELIVERY Status: Acute Current Visit: Yes - Problem List Review Problem List Initiated/Reviewed/Updated: Yes - My Orders Last 24 Hours: My Active Orders 04/06/17 21:53 Heat Therapy [OM.PC] PRN 04/06/17 22:15 Heat Therapy [OM.PC] PRN 04/07/17 06:00 Levothyroxine 125 mcg PO ACBREAKFAST - Assessment Assessment:: 31 y/o G3 now P2012 PPD#2 from after IOL at 37 6/7 wks for preeclampsia - Plan Plan:: * Routine cares * Encourage breast feeding * BP's normal last 24 hours. BP check in office in 1-2 weeks after discharge. * Discharge home today
--- NOTE | 2017-04-07 07:05 | PCM.DCSUM1 ---
Discharge Summary - Discharge Data Discharge Date: 04/07/17 Discharge Disposition: Home, Self-Care 01 Condition: Good - Discharge Diagnosis/Problem(s) (1) 37 weeks gestation of SNOMED Code(s): 08581686 ICD Code: Z3A.37 - 37 WEEKS GESTATION OF Status: Acute Current Visit: Yes (2) Preeclampsia SNOMED Code(s): 942258691 ICD Code: O14.90 - UNSPECIFIED PRE-ECLAMPSIA, UNSPECIFIED TRIMESTER Status : Acute Current Visit: Yes Qualifiers: Trimester: third trimester Qualified Code(s): O14.93 - Unspecified pre- eclampsia, third trimester (3) Vaginal delivery SNOMED Code(s): 599511818 ICD Code: O80 - ENCOUNTER FOR FULL-TERM UNCOMPLICATED DELIVERY Status: Acute Current Visit: Yes - Patient Summary/Data Complications: None Consults: None Recommended Follow-up Testing/Procedures: Follow up in 1-2 weeks for BP check Hospital Course: 31 y/o presented at 37 6/7 wks from clinic due to complaints of a headache and findings of upper limit of normal BP. While on L&D had multiple mild range BP's. Due to this finding IOL started with pitocin. AROM eventually performed. She then progressed quickly to complete dilation and underwent an uncomplicated . See delivery note. she did well and was discharged home on PPD#2 - Patient Instructions Diet: Regular Diet as Tolerated Activity: As Tolerated Activity, Other: Pelvic Rest for 6 weeks Driving: May Drive Today Showering/Bathing: May Shower Showering/Bathing, Other: May Bathe Notify Provider of: Fever, Increased Pain, Swelling and Redness, Drainage, Nausea and/or Vomiting - Discharge Plan Home Medications: Home Meds Levothyroxine Sodium [Synthroid] 125 mcg PO DAILY 10/05/15 [History] PNV #116/Iron Fumarate/FA/DHA [Expecta Combo Pack] 1 each PO DAILY 03/11 [History] Docusate Sodium [Colace] 100 mg PO BID PRN cap 04/06/17 [Rx] Ibuprofen [IJD: Ibuprofen] 600 mg PO Q6H PRN tablet 04/06/17 [Rx] Referrals: Nancy Hoffman MD [Primary Care Provider] - (1-2 weeks for BP check ) - Discharge Summary/Plan Comment DC Time >30 min.: No - Patient Data Vitals - Most Recent: Last Vital Signs Temp 36.9 C 04/07/17 03:13 Pulse 70 04/07/17 03:13 Resp 12 04/07/17 03:13 BP 128/77 04/07/17 03:13 Pulse Ox 99 04/07/17 03:13 Weight - Most Recent: 109.769 kg I&O - Last 24 hours: Intake & Output 04/06/17 04/07/17 04/07/17 22:59 06:59 14:59 Intake Total 240 Balance 240 Med Orders - Current: Current Medications Acetaminophen (Tylenol) 650 mg PO Q4H PRN PRN Reason: mild pain or fever Benzocaine/Menthol (Dermoplast Pain Relief [place]) 0 gm TOP ASDIRECTED PRN PRN Reason: Perineal Comfort Measure Docusate Sodium (Colace) 100 mg PO BID PRN PRN Reason: Constipation Emollient Ointment (Lansinoh Hpa) 0 gm TOP ASDIRECTED PRN PRN Reason: Sore Nipples Ibuprofen (Motrin) 600 mg PO Q6H PRN PRN Reason: Mild pain or fever Last Admin: 04/06/17 17:54 Dose: 600 mg Levothyroxine Sodium (Levothyroxine) 125 mcg PO ACBREAKFAST [facility] Last Admin: 04/07/17 06:18 Dose: 125 mcg Witch Faviola (Tucks) 1 pad TOP ASDIRECTED PRN PRN Reason: Hemorrhoid pain Discontinued Medications Bupivacaine HCl (Sensorcaine-Mpf 0.25%) 10 ml .ROUTE .STK-MED ONE Stop: 04/05/17 22:23 Diphenhydramine HCl (Benadryl) 25 mg IVPUSH Q6H PRN PRN Reason: Pruritis Ephedrine Sulfate (Ephedrine Sulfate) 5 mg IVPUSH ASDIRECTED PRN PRN Reason: Hypotension Fentanyl (Sublimaze) 100 mcg EPIDUR Q3H PRN PRN Reason: Pain Last Admin: 04/05/17 19:02 Dose: 100 mcg Fentanyl/Bupivacaine HCl (Fentanyl/Bupivacaine/Ns 2 Mcg-0.125% 100 Ml) 100 ml EPIDUR ASDIRECTED JOE Last Admin: 04/05/17 19:02 Dose: 100 ml Cefazolin Sodium/Dextrose 2 gm (/ Premix) 50 mls @ 100 mls/hr IV ONETIME ONE Stop: 04/05/17 11:30 Last Admin: 04/05/17 13:45 Dose: 100 mls/hr Cefazolin Sodium/Dextrose 1 gm (/ Premix) 50 mls @ 100 mls/hr IV Q8H JOE Last Admin: 04/05/17 20:05 Dose: 100 mls/hr Lactated Ringer's (Ringers, Lactated) 1,000 mls @ 40 mls/hr IV ASDIRECTED JOE Last Admin: 04/05/17 13:40 Dose: 40 mls/hr Oxytocin/Lactated Ringer's (Pitocin In Lr 10 Units/1,000 Ml) 10 unit in 1,000 mls @ 500 mls/hr IV .CONTINUOUS JOE Last Admin: 04/05/17 21:16 Dose: 500 mls/hr Oxytocin/Lactated Ringer's (Pitocin In Lr 10 Units/1,000 Ml) 10 unit in 1,000 mls @ 12 mls/hr IV TITRATE JOE; 2 MUNITS/MIN PRN Reason: Protocol Last Titration: 04/05/17 20:06 Dose: 12 munits/min, 72 mls/hr Levothyroxine Sodium (Levothyroxine) 125 mcg PO ACBREAKFAST JOE Nalbuphine HCl (Nubain) 10 mg IVPUSH Q2H PRN PRN Reason: Pain (moderate 4-6) Ondansetron HCl (Zofran) 4 mg IVPUSH Q4H PRN PRN Reason: Nausea/Vomiting Last Admin: 04/05/17 20:05 Dose: 4 mg Ondansetron HCl (Zofran) 4 mg IVPUSH ONETIME PRN PRN Reason: Nausea/Vomiting Sodium Chloride (Saline Flush) 10 ml FLUSH ASDIRECTED PRN PRN Reason: Keep Vein Open Last Admin: 04/05/17 13:48 Dose: 10 ml *Q Meaningful Use (DIS) - VTE *Q VTE Criteria *Q: - Stroke *Q Stroke Criteria *Q: - AMI *Q AMI Criteria *Q:
[2017-04-07 12:20] VITALS: BP 124/67
== END 2017-04-07 11:30 | disposition home or self-care (01) | DRG 560 ==
LOC: JD.OBCHECK 09:32 → JD.OB 09:34 → JD.OBCHECK 11:02 → JD.OB 21:16 → OBSVTOIN 21:16
PROVIDERS: ADMIT Obstetrics & Gynecology; ATTEND Obstetrics & Gynecology
PROC: 10E0XZZ Delivery of Products of Conception, External Approach (ICD-10-PCS; principal; 2017-04-05)
PROC: 3E0P3VZ Introduction of Hormone into Female Reproductive, Percutaneous Approach (ICD-10-PCS; 2017-04-05)
PROC: 10907ZC Drainage of Amniotic Fluid, Therapeutic from Products of Conception, Via Natural or Artificial Opening (ICD-10-PCS; 2017-04-05)
PROC: 00HU33Z Insertion of Infusion Device into Spinal Canal, Percutaneous Approach (ICD-10-PCS; 2017-04-05)
PROC: 3E0R3BZ Introduction of Anesthetic Agent into Spinal Canal, Percutaneous Approach (ICD-10-PCS; 2017-04-05)
DX: O14.94 Unspecified pre-eclampsia, complicating childbirth (principal); Z3A.38 38 weeks gestation of pregnancy; Z37.0 Single live birth; O99.824 Streptococcus B carrier state complicating childbirth; Z88.0 Allergy status to penicillin; Z85.850 Personal history of malignant neoplasm of thyroid; Z79.899 Other long term (current) drug therapy
CPT/HCPCS: 36415; 51702; 59409; 82565; 84450; 84460; 85027; A9270-GY; J0690; J2405; J2590; J3010; J7050; J7120

== ENCOUNTER 2025-02-26 18:48 | Emergency (ER) | payer BC ==
[2025-02-26 21:22] VITALS: BP 100/71; PULSE 112
== END 2025-02-26 21:15 | disposition home or self-care (01) ==
LOC: JD.ED 18:48
DX: M79.89 Other specified soft tissue disorders (principal); Z88.0 Allergy status to penicillin; Z88.8 Allergy status to other drugs, medicaments and biological substances
CPT/HCPCS: 93971-26-LT; 93971-LT; 99283